=== PATIENT | female | born 1950 | race African-American/Black ===

== ENCOUNTER 2018-05-26 14:02 | Inpatient (IN) | payer OTHER, MEDICAID ==
[~2018-05-26] VITALS: Ht 152.4 cm; Wt 88.0 kg
[~2018-05-26 14:02] MED LIST: AMLODIPINE; METOPROLOL; NITRO; PRO AIR
[2018-05-26 16:10] LABS: BASOPHILS % 0.7 % (0.0-2.0); EOSINOPHILS % 0.9 % (0.0-5.0); HEMATOCRIT. 37.2 % (36.0-48.0); HEMOGLOBIN. 11.7 g/dL (12.0-16.0); LYMPHOCYTES % 18.9 % (20.0-50.0); MEAN CORPUSCULAR HEMOGLOBIN 26.9 pg (28.0-32.0); MEAN CORPUSCULAR VOLUME 85.3 fL (81.0-99.0); MEAN PLATELET VOLUME 8.2 fl (7.4-10.4); NEUTROPHILS % 73.5 % (40.0-76.0); PLATELET 298 x1000/uL (130-400); RED BLOOD CELL COUNT 4.36 mill/uL (4.2-5.4); RED CELL DISTRIBUTION WIDTH 15.6 % (11.6-14.6)
[2018-05-26 16:15] LABS: CHLORIDE 104 mEq/L (98-107)
[2018-05-26 16:20] LABS: D-DIMER 1.43 mg/L FEU (<0.50); PROTHROMBIN TIME 10.3 sec (9.1-11.1)
[2018-05-26] MEDS ORDERED: FUROSEMIDE 40MG/4ML VIAL IV ONE (18:00)
[2018-05-26] MEDS ORDERED: CLOPIDOGREL 75MG TABLET PO ONE (18:00)
[2018-05-26] MEDS ORDERED: NITROGLYCERIN OINT 1GM/INCH UDPKT TD ONE (18:00)
[2018-05-26] MEDS ORDERED: IOHEXOL-350 100 ML BOTTLE ONE (20:58)
[2018-05-26 21:45] LABS: CLARITY URINE CLEAR (CLEAR); COLOR URINE YELLOW (YELLOW); KETONES URINE NEGATIVE (NEGATIVE); LEUKOCYTE ESTERASE URINE NEGATIVE (NEGATIVE); NITRITE URINE NEGATIVE (NEGATIVE); OCCULT BLOOD URINE NEGATIVE (NEGATIVE); PROTEIN URINE NEGATIVE (NEGATIVE); SPECIFIC GRAVITY URINE 1.013 (1.005-1.030); UROBILINOGEN URINE 0.2 E.U./dL (0.2-1.0)
[2018-05-26] MEDS ORDERED: CLONIDINE 0.2MG TABLET PO NR (22:50)
[2018-05-27] MEDS: CLONIDINE 0.1MG TABLET PO PRN ×2 (01:01→23:08)
[2018-05-27] MEDS ORDERED: ACETAMINOPHEN 325MG TABLET PO ONE (12:00)
[2018-05-27] MEDS ORDERED: HYDRALAZINE HCL 25MG TABLET PO NR (12:07)
[2018-05-27] MEDS ORDERED: ACETAMINOPHEN 325MG TABLET PO PRN ×2 (12:15→16:15)
[2018-05-27] MEDS ORDERED: CLONIDINE 0.1MG TABLET PO PRN (16:15)
[2018-05-27] MEDS ORDERED: HYDROCODONE/ACETAMINOPHEN 5/325MG TABLET PO PRN (16:15)
[2018-05-27] MEDS ORDERED: ONDANSETRON HCL 4MG/2ML INJ IV PRN (16:15)
[2018-05-27] MEDS ORDERED: ENOXAPARIN 40MG/0.4ML SYR SUBCUT NR (20:00)
[2018-05-27] MEDS ORDERED: LEVOFLOXACIN 500MG PREMIX 100 ML IV NR (20:00)
[2018-05-27 23:00] VITALS: BP 171/101
[2018-05-28] VITALS (7 sets, daily range): BP systolic 126–152; BP diastolic 60–92
[2018-05-28 08:18] LABS: BASOPHILS % 1.1 % (0.0-2.0); EOSINOPHILS % 1.2 % (0.0-5.0); HEMATOCRIT. 36.5 % (36.0-48.0); HEMOGLOBIN. 11.8 g/dL (12.0-16.0); LYMPHOCYTES % 20.7 % (20.0-50.0); MEAN CORPUSCULAR HEMOGLOBIN 27.4 pg (28.0-32.0); MEAN PLATELET VOLUME 8.9 fl (7.4-10.4); MONOCYTES % 6.4 % (2.0-8.0); NEUTROPHILS % 70.6 % (40.0-76.0); PLATELET 284 x1000/uL (130-400); RED CELL DISTRIBUTION WIDTH 15.7 % (11.6-14.6)
[2018-05-28] MEDS ORDERED: ASPIRIN 81MG EC TABLET PO SCH (09:00)
[2018-05-28 09:50] LABS: CHLORIDE 105 mEq/L (98-107)
[2018-05-28 10:00] LABS: CREATINE KINASE 37 IU/L (26-192)
[2018-05-28 10:02] LABS: LDL CHOLESTEROL 110 mg/dL (5-100); T4 FREE 1.23 ng/dL (0.76-1.46)
[2018-05-28 10:05] LABS: HDL CHOLESTEROL 57 mg/dL (40-59)
[2018-05-28] MEDS ORDERED: AMLODIPINE 5MG TABLET PO SCH (12:45)
[2018-05-28] MEDS ORDERED: CARVEDILOL 3.125 MG TABLET PO SCH (12:45)
[2018-05-28 13:18] LABS: BG BASE EXCESS 5.2 mmol/L (-2.0-2.0); BG CARBOXYHEMOGLOBIN 0.3 % (0.5-1.5); BG DEOXYHEMOGLOBIN 5.8 % (0.0-5.0); BG FRACTION INSPIRED OXYGEN 21; BG HCO3 ACT 30.2 mmol/L (22.0-26.0); BG METHEMOGLOBIN 0.2 % (0.0-1.5); BG OXYGEN SATURATION 94.2 % (92.0-98.5); BG OXYHEMOGLOBIN 93.7 % (94.0-97.0); BG PCO2 46.1 mmHg (35.0-45.0); BG PH 7.434 (7.350-7.450); BG PO2 73.7 mmHg (75.0-100.0); BG SAMPLE SITE LEFT BRACHIAL; BG TOTAL HEMOGLOBIN 12.5 g/dL (12.0-18.0); BG VENT MODE ROOM AIR
[2018-05-28] MEDS: AMLODIPINE 2.5MG TABLET PO SCH ×2 (15:00→23:34)
[2018-05-28] MEDS ORDERED: LEVOFLOXACIN 500MG PREMIX 100 ML IV SCH ×2 (20:00)
[2018-05-28] MEDS: CARVEDILOL 3.125 MG TABLET PO SCH (20:22)
[2018-05-28] MEDS ORDERED: ENOXAPARIN 40MG/0.4ML SYR SUBCUT SCH (21:00)
[2018-05-29] MEDS ORDERED: DEXT 5%/0.45% NACL 1000ML 1,000 ML IV SCH
[2018-05-29] MEDS: IPRATROPIUM/ALBUTEROL 0.5-3(2.5)MG/3ML NEB INH PRN ×3 (01:05→08:58)
[2018-05-29] MEDS: BUDESONIDE 0.5MG/2ML NEB HHN SCH ×3 (01:06→08:57)
[2018-05-29 04:00] VITALS: BP 125/78
[2018-05-29 06:36] LABS: HEMATOCRIT 34.1 % (36.0-48.0); MEAN CORPUSCULAR HEMOGLOBIN 27.2 pg (28.0-32.0); MEAN CORPUSCULAR VOLUME 84.8 fL (81.0-99.0); PLATELET 257 x1000/uL (130-400); RED BLOOD CELL COUNT 4.02 mill/uL (4.2-5.4); RED CELL DISTRIBUTION WIDTH 15.6 % (11.6-14.6)
[2018-05-29] MEDS ORDERED: REGADENOSON 0.4 MG/5 ML IV SCH ×2 (07:30→08:45)
[2018-05-29 08:00] VITALS: BP 130/80
[2018-05-29] MEDS: CARVEDILOL 3.125 MG TABLET PO SCH (08:47)
[2018-05-29] MEDS: AMLODIPINE 2.5MG TABLET PO SCH (08:48)
[2018-05-29] MEDS ORDERED: REGADENOSON 0.4 MG/5 ML IV ONE (09:44)
[2018-05-29 12:00] VITALS: BP 168/98
[2018-05-29] MEDS ORDERED: LOSARTAN POTASSIUM 25 MG TABLET PO SCH (13:00)
[2018-05-29] MEDS ORDERED: SPIRONOLACTONE 25MG TABLET PO SCH (14:15)
[2018-05-29 15:36] LABS: *AMPHETAMINES SCREEN URINE NEGATIVE (NEGATIVE)
[2018-05-29 15:37] LABS: *BARBITURATES SCREEN URINE NEGATIVE (NEGATIVE); *BENZODIAZEPINES SCREEN URINE NEGATIVE (NEGATIVE); *COCAINE SCREEN URINE NEGATIVE (NEGATIVE); OPIATES URINE SCREEN PRESUMTIVE POSITIVE (NEGATIVE); PHENCYCLIDINE URINE SCREEN NEGATIVE (NEGATIVE)
[2018-05-29 15:38] LABS: CANNABINOID URINE SCREEN NEGATIVE (NEGATIVE); METHADONE URINE SCREEN NEGATIVE (NEGATIVE)
[2018-05-29 17:17] VITALS: BP 155/83
[2018-05-29] MEDS ORDERED: ATORVASTATIN CALCIUM 10MG TABLET PO SCH (21:00)
== END 2018-05-29 18:20 | disposition home or self-care (01) | DRG 190 ==
LOC: ER 14:33 → 7WST 21:29 → EDBEDREQ 21:32 → CANRESERV 05-27 20:32 → ENRESERV 05-27 20:32 → CANRESERV 05-27 20:35 → ENRESERV 05-27 20:35 → EDRESERV 05-27 20:35 → 7WST 05-27 23:23
PROVIDERS: ADMIT Internal Medicine; ATTEND Internal Medicine
DX: J44.1 Chronic obstructive pulmonary disease with (acute) exacerbation (principal); I50.23 Acute on chronic systolic (congestive) heart failure; E46 Unspecified protein-calorie malnutrition; D68.59 Other primary thrombophilia; I42.9 Cardiomyopathy, unspecified; I11.0 Hypertensive heart disease with heart failure; Z98.61 Coronary angioplasty status; J40 Bronchitis, not specified as acute or chronic; I44.7 Left bundle-branch block, unspecified; M19.90 Unspecified osteoarthritis, unspecified site; E86.0 Dehydration; J06.9 Acute upper respiratory infection, unspecified; E66.9 Obesity, unspecified; E78.00 Pure hypercholesterolemia, unspecified; E78.5 Hyperlipidemia, unspecified; I25.10 Atherosclerotic heart disease of native coronary artery without angina pectoris; I25.2 Old myocardial infarction; Z87.891 Personal history of nicotine dependence; Z88.6 Allergy status to analgesic agent; Z88.9 Allergy status to unspecified drugs, medicaments and biological substances; Z68.37 Body mass index [BMI] 37.0-37.9, adult
CPT/HCPCS: 36415; 36600; 71045; 71275; 78452; 80048; 80061; 80305; 82375; 82550; 82805; 83036; 83735; 83880; 84439; 84443; 84484; 85027; 85379; 93005; 93017; 93306; 93970; 94640; 96374; 96375; 97116; 97162; 99284; 99285; A9500; J1650; J1940; J1956; J2785; J7050; J7620; J7626; Q9967

== ENCOUNTER 2019-10-16 18:38 | Inpatient (IN) | payer OTHER, MEDICAID, MEDICARE ==
[~2019-10-16] VITALS: Ht 152.4 cm; Wt 91.7 kg
[2019-10-16 19:43] LABS: CHLORIDE 110 mEq/L (98-107)
[2019-10-16 19:46] LABS: BASOPHILS % 0.5 % (0.0-2.0); HEMATOCRIT. 36.5 % (36.0-48.0); HEMOGLOBIN. 11.5 g/dL (12.0-16.0); LYMPHOCYTES % 19.5 % (20.0-50.0); MEAN CORPUSCULAR HEMOGLOBIN 28.4 pg (28.0-32.0); MEAN CORPUSCULAR VOLUME 90.4 fL (81.0-99.0); MEAN PLATELET VOLUME 8.2 fl (7.4-10.4); MONOCYTES % 4.9 % (2.0-8.0); NEUTROPHILS % 74.1 % (40.0-76.0); PLATELET 308 x1000/uL (130-400); RED BLOOD CELL COUNT 4.04 mill/uL (4.2-5.4); RED CELL DISTRIBUTION WIDTH 15.2 % (11.6-14.6)
[2019-10-16] MEDS ORDERED: ASPIRIN 325MG EC TABLET PO ONE (21:45)
[2019-10-16] MEDS ORDERED: ALBUTEROL (0.083%) 2.5MG/3ML NEB HHN STA (22:47)
[2019-10-16] MEDS ORDERED: IPRATROPIUM BROMIDE (0.02%) 0.5MG/2.5ML NEB HHN STA (22:47)
[2019-10-16] MEDS ORDERED: METHYLPREDNISOLONE SOD SUCC 125 MG/2 ML VIAL IV STA (22:47)
[2019-10-17] VITALS (9 sets, daily range): BP systolic 137–195; BP diastolic 83–106
[2019-10-17] MEDS ORDERED: SPIR25TA6 PO (01:19)
[2019-10-17] MEDS ORDERED: ATOR10TA69 PO (01:19)
[2019-10-17] MEDS ORDERED: ASPI-1158 PO (01:19)
[2019-10-17] MEDS ORDERED: CARV3.1242 PO (01:19)
[2019-10-17] MEDS ORDERED: LOSA50TA41 PO (01:19)
[2019-10-17] MEDS ORDERED: CLONIDINE 0.1MG TABLET PO PRN (01:45)
[2019-10-17] MEDS ORDERED: HYDROCODONE/ACETAMINOPHEN 5/325MG TABLET PO PRN (01:45)
[2019-10-17] MEDS ORDERED: LOSARTAN POTASSIUM 50 MG TABLET PO SCH (06:15)
[2019-10-17] MEDS: METHYLPREDNISOLONE SOD SUCC 40 MG/ML VIAL IV SCH ×3 (06:39→21:01)
[2019-10-17] MEDS: CARVEDILOL 6.25 MG TABLET PO SCH ×2 (06:40→17:02)
[2019-10-17 07:09] LABS: HEMATOCRIT. 32.5 % (36.0-48.0); HEMOGLOBIN. 10.3 g/dL (12.0-16.0); MEAN CORPUSCULAR HEMOGLOBIN 28.5 pg (28.0-32.0); MEAN CORPUSCULAR VOLUME 89.8 fL (81.0-99.0); MEAN PLATELET VOLUME 8.4 fl (7.4-10.4); PLATELET 289 x1000/uL (130-400); RED BLOOD CELL COUNT 3.61 mill/uL (4.2-5.4)
[2019-10-17 07:28] LABS: CHLORIDE 112 mEq/L (98-107)
[2019-10-17 07:39] LABS: T4 FREE 1.11 ng/dL (0.76-1.46)
[2019-10-17] MEDS: FUROSEMIDE 40MG/4ML VIAL IVP SCH (08:29)
[2019-10-17] MEDS: FAMOTIDINE 20MG TABLET PO SCH (08:29)
[2019-10-17] MEDS ORDERED: ENOXAPARIN 40MG/0.4ML SYR SUBCUT SCH (09:00)
[2019-10-17 12:43] LABS: PLATELET ESTIMATE NORMAL
[2019-10-17] MEDS ORDERED: BISACODYL 10MG SUPP PR PRN (13:00)
[2019-10-17] MEDS ORDERED: DIPHENHYDRAMINE 50MG/ML VIAL IV PRN (13:00)
[2019-10-17] MEDS ORDERED: ACETAMINOPHEN 325MG TABLET PO PRN (13:00)
[2019-10-17] MEDS ORDERED: ACETAMINOPHEN 650MG SUPP PR PRN (13:00)
[2019-10-17] MEDS ORDERED: IPRATROPIUM/ALBUTEROL 0.5-3(2.5)MG/3ML NEB HHN PRN (13:00)
[2019-10-17 15:48] LABS: PROTHROMBIN TIME 10.6 sec (9.6-11.0)
[2019-10-17 16:30] LABS: CLARITY URINE CLEAR (CLEAR); COLOR URINE YELLOW (YELLOW); KETONES URINE NEGATIVE (NEGATIVE); LEUKOCYTE ESTERASE URINE NEGATIVE (NEGATIVE); NITRITE URINE NEGATIVE (NEGATIVE); OCCULT BLOOD URINE NEGATIVE (NEGATIVE); PROTEIN URINE NEGATIVE (NEGATIVE); SPECIFIC GRAVITY URINE 1.008 (1.005-1.030); UROBILINOGEN URINE 0.2 E.U./dL (0.2-1.0)
[2019-10-17] MEDS: IPRATROPIUM/ALBUTEROL 0.5-3(2.5)MG/3ML NEB HHN SCH ×2 (17:26→20:40)
[2019-10-17] MEDS: HYDRALAZINE 20MG/ML VIAL IV PRN (18:15)
[2019-10-17] MEDS: ENOXAPARIN 30MG/0.3ML SYR SUBCUT SCH (21:02)
[2019-10-17 21:13] LABS: *AMPHETAMINES SCREEN URINE NEGATIVE (NEGATIVE); *BARBITURATES SCREEN URINE NEGATIVE (NEGATIVE); *COCAINE SCREEN URINE NEGATIVE (NEGATIVE); CANNABINOID URINE SCREEN NEGATIVE (NEGATIVE)
[2019-10-17 21:14] LABS: *BENZODIAZEPINES SCREEN URINE NEGATIVE (NEGATIVE); METHADONE URINE SCREEN NEGATIVE (NEGATIVE); OPIATES URINE SCREEN NEGATIVE (NEGATIVE); PHENCYCLIDINE URINE SCREEN NEGATIVE (NEGATIVE)
[2019-10-17] MEDS: LOSARTAN POTASSIUM 50 MG TABLET PO SCH (22:08)
[2019-10-18] VITALS (8 sets, daily range): BP systolic 116–183; BP diastolic 60–100
[2019-10-18] MEDS ORDERED: CLONIDINE 0.1MG TABLET PO PRN (00:15)
[2019-10-18] MEDS: HYDRALAZINE 20MG/ML VIAL IV PRN (04:11)
[2019-10-18] MEDS: METHYLPREDNISOLONE SOD SUCC 40 MG/ML VIAL IV SCH ×2 (05:02→17:24)
[2019-10-18] MEDS: CARVEDILOL 12.5MG TABLET PO SCH ×2 (05:03→17:24)
[2019-10-18 06:23] LABS: HEMATOCRIT. 35.5 % (36.0-48.0); MEAN CORPUSCULAR HEMOGLOBIN 27.8 pg (28.0-32.0); MEAN CORPUSCULAR VOLUME 89.4 fL (81.0-99.0); MEAN PLATELET VOLUME 8.6 fl (7.4-10.4); PLATELET 319 x1000/uL (130-400); RED BLOOD CELL COUNT 3.97 mill/uL (4.2-5.4); RED CELL DISTRIBUTION WIDTH 15.2 % (11.6-14.6)
[2019-10-18] MEDS: IPRATROPIUM/ALBUTEROL 0.5-3(2.5)MG/3ML NEB HHN SCH ×4 (08:11→21:05)
[2019-10-18] MEDS: FUROSEMIDE 40MG/4ML VIAL IVP SCH (08:59)
[2019-10-18] MEDS: FAMOTIDINE 20MG TABLET PO SCH (09:00)
[2019-10-18] MEDS: ENOXAPARIN 30MG/0.3ML SYR SUBCUT SCH ×2 (09:00→21:16)
[2019-10-18] MEDS: LOSARTAN POTASSIUM 50 MG TABLET PO SCH ×2 (09:00→21:16)
[2019-10-18 10:39] LABS: PLATELET ESTIMATE NORMAL
[2019-10-18] MEDS: ASPIRIN 81MG TABLET PO SCH (11:33)
[2019-10-18] MEDS ORDERED: ATORVASTATIN CALCIUM 20MG TABLET PO SCH (21:00)
[2019-10-18] MEDS ORDERED: MAGNESIUM/ALUMINUM HYDROXIDE/SIMETHICONE 30ML UDC PO PRN (23:45)
[2019-10-19] VITALS: BP 130/82
[2019-10-19 04:00] VITALS: BP 148/81
[2019-10-19] MEDS: METHYLPREDNISOLONE SOD SUCC 40 MG/ML VIAL IV SCH (05:09)
[2019-10-19] MEDS: CARVEDILOL 12.5MG TABLET PO SCH (05:10)
[2019-10-19 08:00] VITALS: BP_SYST 139; BP_SYST 151; BP_SYST 159; BP_DIAS 77; BP_DIAS 80; BP_DIAS 86
[2019-10-19] MEDS: IPRATROPIUM/ALBUTEROL 0.5-3(2.5)MG/3ML NEB HHN SCH ×3 (08:05→15:40)
[2019-10-19] MEDS: ASPIRIN 81MG TABLET PO SCH (08:58)
[2019-10-19] MEDS: FAMOTIDINE 20MG TABLET PO SCH (08:58)
[2019-10-19] MEDS: ENOXAPARIN 30MG/0.3ML SYR SUBCUT SCH (08:58)
[2019-10-19] MEDS: LOSARTAN POTASSIUM 50 MG TABLET PO SCH (08:58)
[2019-10-19] MEDS ORDERED: AMLODIPINE 5MG TABLET PO SCH (09:30)
[2019-10-19 12:00] VITALS: BP 120/56
[2019-10-19] MEDS ORDERED: AMOX1TAB15 MT (12:17)
[2019-10-19] MEDS ORDERED: ALBU90AE INH (12:17)
[2019-10-19] MEDS ORDERED: FAMO-135 PO (12:17)
[2019-10-19] MEDS ORDERED: LOSA50TA3 MT (12:17)
[2019-10-19] MEDS ORDERED: ASPI-1497 MT (12:17)
[2019-10-19] MEDS ORDERED: COR12 MT (12:17)
[2019-10-19] MEDS ORDERED: P20 PO (12:17)
[2019-10-19 13:52] VITALS: BP 120/56
== END 2019-10-19 16:00 | disposition home or self-care (01) | DRG 74 ==
LOC: ER 18:38 → 5WST 22:48 → ENRESERV 23:12 → EDBEDREQ 23:56
PROVIDERS: ADMIT Internal Medicine; ATTEND Internal Medicine
DX: G90.8 Other disorders of autonomic nervous system (principal); J44.1 Chronic obstructive pulmonary disease with (acute) exacerbation; I13.0 Hypertensive heart and chronic kidney disease with heart failure and stage 1 through stage 4 chronic kidney disease, or unspecified chronic kidney disease; I42.9 Cardiomyopathy, unspecified; E66.2 Morbid (severe) obesity with alveolar hypoventilation; R06.03 Acute respiratory distress; R19.7 Diarrhea, unspecified; R30.0 Dysuria; I50.9 Heart failure, unspecified; D64.9 Anemia, unspecified; D72.810 Lymphocytopenia; E78.00 Pure hypercholesterolemia, unspecified; E78.5 Hyperlipidemia, unspecified; I25.10 Atherosclerotic heart disease of native coronary artery without angina pectoris; N18.9 Chronic kidney disease, unspecified; Z96.649 Presence of unspecified artificial hip joint; F17.210 Nicotine dependence, cigarettes, uncomplicated; I44.7 Left bundle-branch block, unspecified; Z96.641 Presence of right artificial hip joint; Z86.73 Personal history of transient ischemic attack (TIA), and cerebral infarction without residual deficits; Z90.710 Acquired absence of both cervix and uterus; Z79.82 Long term (current) use of aspirin; Z79.899 Other long term (current) drug therapy; Z88.6 Allergy status to analgesic agent; Z88.8 Allergy status to other drugs, medicaments and biological substances; Z20.828 Contact with and (suspected) exposure to other viral communicable diseases; Z68.39 Body mass index [BMI] 39.0-39.9, adult
CPT/HCPCS: 36415; 71045; 78582; 80048; 80053; 80061; 80305; 81003; 83036; 83880; 84439; 84443; 84484; 85025; 87015; 87045; 87427; 87449; 89055; 93005; 93306; 93880; 94640; 94644; 96374; 97162; 99285; A9558; J0360; J1650; J1940; J2920; J2930

== ENCOUNTER 2021-04-24 12:20 | Emergency (ER) | payer OTHER, MEDICAID ==
[~2021-04-24] VITALS: Ht 152.4 cm; Wt 91.0 kg
[~2021-04-24 12:20] MED LIST changes: +ALBU90AE INH; -AMLODIPINE; +AMOX1TAB15 MT; +ASPI-1406 PO; +ASPI-1497 MT; +ATOR10TA69 PO; +CARV3.1242 PO; +COR12 MT; +FAMO-135 PO; +LOSA50TA3 MT; +LOSA50TA41 PO; -METOPROLOL; -NITRO; +P20 PO; -PRO AIR; +SPIR25TA6 PO
[2021-04-24 13:08] LABS: BASOPHILS % 0.5 % (0.0-2.0); EOSINOPHILS % 0.9 % (0.0-5.0); HEMATOCRIT. 35.2 % (36.0-48.0); HEMOGLOBIN. 11.5 g/dL (12.0-16.0); LYMPHOCYTES % 12.5 % (20.0-50.0); MEAN CORPUSCULAR HEMOGLOBIN 28.7 pg (28.0-32.0); MEAN CORPUSCULAR VOLUME 87.8 fL (81.0-99.0); MEAN PLATELET VOLUME 8.1 fl (7.4-10.4); MONOCYTES % 6.2 % (2.0-8.0); NEUTROPHILS % 79.9 % (40.0-76.0); PLATELET 265 x1000/uL (130-400); RED BLOOD CELL COUNT 4.01 mill/uL (4.2-5.4); RED CELL DISTRIBUTION WIDTH 14.6 % (11.6-14.6)
[2021-04-24 13:15] LABS: CHLORIDE 107 mEq/L (98-107)
[2021-04-24] MEDS ORDERED: CALCIUM GLUCONATE 1GM PREMIX 50 ML IV ONE (13:15)
[2021-04-24] MEDS ORDERED: CARVEDILOL 12.5MG TABLET PO ONE (13:15)
[2021-04-24] MEDS ORDERED: LOSARTAN POTASSIUM 50 MG TABLET PO ONE (13:15)
[2021-04-24] MEDS ORDERED: METHYLPREDNISOLONE SOD SUCC 125 MG/2 ML VIAL IV STA (13:44)
[2021-04-24] MEDS ORDERED: ALBUTEROL (0.083%) 2.5MG/3ML NEB HHN STA (13:44)
[2021-04-24] MEDS ORDERED: IPRATROPIUM BROMIDE (0.02%) 0.5MG/2.5ML NEB HHN STA (13:44)
[2021-04-24] MEDS ORDERED: CALCIUM GLUCONATE 1GM PREMIX 50 ML IV NR (15:45)
[2021-04-24 18:24] VITALS: BP 182/95
== END 2021-04-24 18:52 | disposition admitted as inpatient to this hospital (09) ==
LOC: ER 12:20 → CANBEDREQ 19:57
DX: J44.1 Chronic obstructive pulmonary disease with (acute) exacerbation (principal); I11.0 Hypertensive heart disease with heart failure; I50.9 Heart failure, unspecified; E78.00 Pure hypercholesterolemia, unspecified; Z20.822 Contact with and (suspected) exposure to COVID-19; Z88.5 Allergy status to narcotic agent; Z79.82 Long term (current) use of aspirin; Z79.899 Other long term (current) drug therapy
CPT/HCPCS: 36415; 71045; 80053; 83880; 84484; 85025; 87426; 93005; 94640; 96374; 99285; J0610; J2930